=== PATIENT | female | born 1980 | race Native Hawaiian/Other Pacific Islander ===

== ENCOUNTER 2016-11-26 16:45 | Emergency (ER) | payer MEDICAID, OTHER ==
[~2016-11-26] VITALS: Ht 162.6 cm; Wt 61.0 kg
[~2016-11-26 16:45] MED LIST: KETO2%T TOP; METO25 PO; SYNT25TA PO; Z.0.NO CURRENT MEDS
[2016-11-26 16:50] VITALS: BP 110/78; PULSE 93; RESP 16; TEMP 98.3; O2SAT 98
[2016-11-26] MEDS ORDERED: SODIUM CHLORIDE 0.9% FLUSH 10 ML FLUSH IVF PRN (17:00)
[2016-11-26] MEDS ORDERED: SODIUM CHLOR 0.9% 1000 ML INJ 1,000 ML IV ONE (17:00)
[2016-11-26 17:12] LABS: AUTOMATED NEUTROPHIL # 4.1 TH/MM3 (1.8-7.7); BASOPHIL # 0.1 TH/MM3 (0-0.2); BASOPHIL % 0.9 % (0.0-2.0); EOSINOPHIL # 0.1 TH/MM3 (0-0.4); EOSINOPHIL % 1.2 % (0.0-4.0); HEMO FLAGS DIFF FINAL; LYMPH % 29.7 % (9.0-44.0); MEAN CELL VOLUME 91.3 FL (80.0-100.0); MEAN CORPUSCULAR HEMOGLOBIN 31.1 PG (27.0-34.0); MEAN CORPUSCULAR HGB CONC 34.1 % (32.0-36.0); MONO % 7.7 % (0.0-8.0); NEUT % 60.5 % (16.0-70.0); PLATELET COUNT 264 TH/MM3 (150-450); RED BLOOD COUNT 4.27 MIL/MM3 (4.00-5.30); RED CELL DISTRIBUTION WIDTH 12.2 % (11.6-17.2); WHITE BLOOD COUNT 6.8 TH/MM3 (4.0-11.0)
[2016-11-26 17:13] VITALS: BP 113/81; PULSE 85; RESP 20; O2SAT 98
[2016-11-26 17:24] LABS: CHLORIDE 108 MEQ/L (98-107); POTASSIUM 3.7 MEQ/L (3.5-5.1); SODIUM (NA) 140 MEQ/L (136-145)
[2016-11-26 17:28] LABS: ANION GAP 10 MEQ/L (5-15); BICARBONATE 22.4 MEQ/L (21.0-32.0); BLOOD UREA NITROGEN 9 MG/DL (7-18)
[2016-11-26] MEDS ORDERED: MORPHINE SULFATE 8 MG/ML INJ IV PUSH ONE (17:30)
[2016-11-26 17:31] LABS: ALT (GPT) 17 U/L (10-53); AST (GOT) 15 U/L (15-37); GLOMERULAR FILTRATION RATE 95 ML/MIN (>89)
[2016-11-26 17:33] LABS: TOTAL BILIRUBIN ADULT 0.5 MG/DL (0.2-1.0)
[2016-11-26 17:34] LABS: ALKALINE PHOSPHATASE 62 U/L (45-117)
[2016-11-26 17:36] LABS: BETA HCG QUANT LESS THAN 1 MIU/ML (0-5)
--- NOTE | 2016-11-26 17:47 | PD ---
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 Patient reports that 4 days ago, her IUD feel out after being in there for 2 years. Reports that it was placed by Dr. Mcrae and she has not had any issues with it since then. Reports that she just had her period 1 week ago, reports that this afternoon, she began to have severe pain to her lower abdomen. Reports that she has been having vaginal bleeding ever since her IUD was displaced, reports that this afternoon is when she began to have severe lower abdominal cramping. Patient reports that pain is worse to her right lower abdomen. Reports nausea and vomiting with her symptoms. Patient also reports that she is having sore throat. No fever/chills. Denies cough/congestion. Denies vaginal discharge at this time. [facility] Past Medical History Medical History: Denies Significant Hx Diminished Hearing: No ?: Unknown LMP: 1 week ago Past Surgical History Surgical History: No Previous Surgery Social History Alcohol Use: No Tobacco Use: No Substance Use: No Allergies-Medications (Allergen,Severity, Reaction): Coded Allergies: No Known Allergies (Verified , 11/26/16) Reported Meds & Prescriptions Reported Meds & Active Scripts Active No Active Prescriptions or Reported Medications Review of Systems General / Constitutional: No: Fever Eyes: No: Visual changes HENT: Positive: Sore Throat, No: Headaches Cardiovascular: No: Chest Pain or Discomfort Respiratory: No: Shortness of Breath Gastrointestinal: Positive: Nausea, Vomiting, Abdominal Pain Genitourinary: Positive: Pelvic Pain, Vaginal Bleeding, No: Dysuria Musculoskeletal: No: Pain Skin: No Rash Neurologic: No: Weakness Psychiatric: No: Depression Endocrine: No: Polydipsia Hematologic/Lymphatic: No: Easy Bruising Physical Exam Narrative GENERAL: Moderate distress SKIN: Focused skin assessment warm/dry. HEAD: Atraumatic. Normocephalic. EYES: Pupils equal and round. No scleral icterus. No injection or drainage. ENT: No nasal bleeding or discharge. Mucous membranes pink and moist. NECK: Trachea midline. No JVD. CARDIOVASCULAR: Regular rate and rhythm. No murmur appreciated. RESPIRATORY: No accessory muscle use. Clear to auscultation. Breath sounds equal bilaterally. GASTROINTESTINAL: Abdomen soft, nondistended, diffusely tender to lower abdomen. Hepatic and splenic margins not palpable. : pelvic exam performed with RN at bedside, patient with right sided adnexal tenderness, no cmt tenderness, scant brown discharge MUSCULOSKELETAL: No obvious deformities. No clubbing. No cyanosis. No edema. NEUROLOGICAL: Awake and alert. No obvious cranial nerve deficits. Motor grossly within normal limits. Normal speech. PSYCHIATRIC: Appropriate mood and affect; insight and judgment normal. Data Data Last Documented VS Vital Signs Date Time Temp Pulse Resp B/P Pulse Ox O2 Delivery O2 Flow Rate FiO2 11/26/16 17:53 71 20 113/81 93 11/26/16 16:50 98.3 Orders Beta Hcg (Quant/Titer) (11/26/16 16:57) Complete Blood Count With Diff (11/26/16 16:57) Comprehensive Metabolic Panel (11/26/16 16:57) Gc And Chlamydia Pcr (11/26/16 16:57) Wet Prep Profile (11/26/16 16:57) Urinalysis - C+S If Indicated (11/26/16 16:57) Iv Access Insert/Monitor (11/26/16 16:57) Sodium Chloride 0.9% Flush (Ns Flush) (11/26/16 17:00) Ed Urine Pregnancytest Poc (11/26/16 16:57) Sodium Chlor 0.9% 1000 Ml Inj (Ns 1000 M (11/26/16 17:00) Group A Rapid Strep Screen (11/26/16 17:18) Us Pelvis Comp W Doppler (11/26/16 17:18) Morphine Inj (Morphine Inj) (11/26/16 17:30) Strep Culture (Group A) (11/26/16 17:45) Ct Abd/Pel W Iv Contrast(Rout) (11/26/16 18:42) Labs Laboratory Tests Test 11/26/16 11/26/16 17:05 17:45 White Blood Count 6.8 TH/MM3 Red Blood Count 4.27 MIL/MM3 Hemoglobin 13.3 GM/DL Hematocrit 39.0 % Mean Corpuscular Volume 91.3 FL Mean Corpuscular Hemoglobin 31.1 PG Mean Corpuscular Hemoglobin 34.1 % Concent Red Cell Distribution Width 12.2 % Platelet Count 264 TH/MM3 Mean Platelet Volume 8.8 FL Neutrophils (%) (Auto) 60.5 % Lymphocytes (%) (Auto) 29.7 % Monocytes (%) (Auto) 7.7 % Eosinophils (%) (Auto) 1.2 % Basophils (%) (Auto) 0.9 % Neutrophils # (Auto) 4.1 TH/MM3 Lymphocytes # (Auto) 2.0 TH/MM3 Monocytes # (Auto) 0.5 TH/MM3 Eosinophils # (Auto) 0.1 TH/MM3 Basophils # (Auto) 0.1 TH/MM3 CBC Comment DIFF FINAL Differential Comment Sodium Level 140 MEQ/L Potassium Level 3.7 MEQ/L Chloride Level 108 MEQ/L Carbon Dioxide Level 22.4 MEQ/L Anion Gap 10 MEQ/L Blood Urea Nitrogen 9 MG/DL Creatinine 0.70 MG/DL Estimat Glomerular Filtration 95 ML/MIN Rate Random Glucose 108 MG/DL Calcium Level 8.8 MG/DL Total Bilirubin 0.5 MG/DL Aspartate Amino Transf 15 U/L (AST/SGOT) Alanine Aminotransferase 17 U/L (ALT/SGPT) Alkaline Phosphatase 62 U/L Total Protein 8.0 GM/DL Albumin 3.7 GM/DL Human Chorionic Gonadotropin, LESS THAN 1 Quant MIU/ML Clue Cells (Wet Prep) NONE SEEN Vaginal Trichomonas (Wet Prep) NONE SEEN Vaginal Yeast (Wet Prep) NONE SEEN MDM Medical Decision Making Medical Screen Exam Complete: Yes Emergency Medical Condition: Yes Interpretation(s) Vital Signs Date Time Temp Pulse Resp B/P Pulse Ox O2 Delivery O2 Flow Rate FiO2 11/26/16 17:13 85 20 113/81 98 11/26/16 16:50 98.3 93 16 110/78 98 Differential Diagnosis Differential includes appendicitis, ovarian torsion, ovarian cysts, cervicitis, gastroenteritis, strep pharyngitis, cystitis Narrative Course Patient is a 36-year-old female who presents to emergency room with complaints of abdominal pain. Patient reports that she has been having severe abdominal pain for the past 3 hours, reports that 4 days ago, her IUD "fell out." Reports that she has had no pain after IUD fell out. Reports that pain is worse to her right lower abdomen. On pelvic exam, patient does have right-sided adnexal tenderness. Discussed concerns for possible ovarian torsion versus ovarian cyst, pelvic ultrasound was ordered. Lab work including cultures ordered. Will give morphine for pain control. IF us neg for pathology, will order ct of abdomen/pelvis Laboratory Tests Test 11/26/16 11/26/16 17:05 17:45 White Blood Count 6.8 TH/MM3 (4.0-11.0) Red Blood Count 4.27 MIL/MM3 (4.00-5.30) Hemoglobin 13.3 GM/DL (11.6-15.3) Hematocrit 39.0 % (35.0-46.0) Mean Corpuscular Volume 91.3 FL (80.0-100.0) Mean Corpuscular Hemoglobin 31.1 PG (27.0-34.0) Mean Corpuscular Hemoglobin 34.1 % Concent (32.0-36.0) Red Cell Distribution Width 12.2 % (11.6-17.2) Platelet Count 264 TH/MM3 (150-450) Mean Platelet Volume 8.8 FL (7.0-11.0) Neutrophils (%) (Auto) 60.5 % (16.0-70.0) Lymphocytes (%) (Auto) 29.7 % (9.0-44.0) Monocytes (%) (Auto) 7.7 % (0.0-8.0) Eosinophils (%) (Auto) 1.2 % (0.0-4.0) Basophils (%) (Auto) 0.9 % (0.0-2.0) Neutrophils # (Auto) 4.1 TH/MM3 (1.8-7.7) Lymphocytes # (Auto) 2.0 TH/MM3 (1.0-4.8) Monocytes # (Auto) 0.5 TH/MM3 (0-0.9) Eosinophils # (Auto) 0.1 TH/MM3 (0-0.4) Basophils # (Auto) 0.1 TH/MM3 (0-0.2) CBC Comment DIFF FINAL Differential Comment Sodium Level 140 MEQ/L (136-145) Potassium Level 3.7 MEQ/L (3.5-5.1) Chloride Level 108 MEQ/L (98-107) Carbon Dioxide Level 22.4 MEQ/L (21.0-32.0) Anion Gap 10 MEQ/L (5-15) Blood Urea Nitrogen 9 MG/DL (7-18) Creatinine 0.70 MG/DL (0.50-1.00) Estimat Glomerular Filtration 95 ML/MIN (>89) Rate Random Glucose 108 MG/DL (74-106) Calcium Level 8.8 MG/DL (8.5-10.1) Total Bilirubin 0.5 MG/DL (0.2-1.0) Aspartate Amino Transf 15 U/L (15-37) (AST/SGOT) Alanine Aminotransferase 17 U/L (10-53) (ALT/SGPT) Alkaline Phosphatase 62 U/L (45-117) Total Protein 8.0 GM/DL (6.4-8.2) Albumin 3.7 GM/DL (3.4-5.0) Human Chorionic Gonadotropin, LESS THAN 1 Quant MIU/ML (0-5) Clue Cells (Wet Prep) NONE SEEN (NONE) Vaginal Trichomonas (Wet Prep) NONE SEEN (NONE) Vaginal Yeast (Wet Prep) NONE SEEN (NONE) Patient signed out to care of Dr. Shaikh at change of shift Scripts No Active Prescriptions or Reported Meds Rylee Hernandez DO Nov 26, 2016 17:47
[2016-11-26 17:53] VITALS: BP 113/81; PULSE 71; RESP 20; O2SAT 93
[2016-11-26 19:13] VITALS: BP 110/67; PULSE 101; RESP 18; O2SAT 99
[2016-11-26 19:26] LABS: GLUCOSE,URINE NEG (NEG); KETONE, URINE NEG (NEG); NITRITE,URINE NEG (NEG); PH, URINE 5.5 (5.0-8.5)
[2016-11-26 19:28] LABS: BLOOD, URINE MOD (NEG)
--- NOTE | 2016-11-26 19:28 | PD ---
Physical Exam Date Seen by Provider: Nov 26, 2016 Time Seen by Provider: 19:27 Narrative Accepted in transfer of care from Dr. Hernandez Data Data Last Documented VS Vital Signs Date Time Temp Pulse Resp B/P Pulse Ox O2 Delivery O2 Flow Rate FiO2 11/26/16 20:20 91 20 102/71 98 Room Air 11/26/16 16:50 98.3 Orders Beta Hcg (Quant/Titer) (11/26/16 16:57) Complete Blood Count With Diff (11/26/16 16:57) Comprehensive Metabolic Panel (11/26/16 16:57) Gc And Chlamydia Pcr (11/26/16 16:57) Wet Prep Profile (11/26/16 16:57) Urinalysis - C+S If Indicated (11/26/16 16:57) Iv Access Insert/Monitor (11/26/16 16:57) Sodium Chloride 0.9% Flush (Ns Flush) (11/26/16 17:00) Ed Urine Pregnancytest Poc (11/26/16 16:57) Sodium Chlor 0.9% 1000 Ml Inj (Ns 1000 M (11/26/16 17:00) Group A Rapid Strep Screen (11/26/16 17:18) Us Pelvis Comp W Doppler (11/26/16 17:18) Morphine Inj (Morphine Inj) (11/26/16 17:30) Strep Culture (Group A) (11/26/16 17:45) Ct Abd/Pel W Iv Contrast(Rout) (11/26/16 18:42) Iohexol 350 Inj (Omnipaque 350 Inj) (11/26/16 20:21) Ketorolac Inj (Toradol Inj) (11/26/16 21:00) Labs Laboratory Tests Test 11/26/16 11/26/16 11/26/16 17:05 17:45 19:10 White Blood Count 6.8 TH/MM3 Red Blood Count 4.27 MIL/MM3 Hemoglobin 13.3 GM/DL Hematocrit 39.0 % Mean Corpuscular Volume 91.3 FL Mean Corpuscular Hemoglobin 31.1 PG Mean Corpuscular Hemoglobin 34.1 % Concent Red Cell Distribution Width 12.2 % Platelet Count 264 TH/MM3 Mean Platelet Volume 8.8 FL Neutrophils (%) (Auto) 60.5 % Lymphocytes (%) (Auto) 29.7 % Monocytes (%) (Auto) 7.7 % Eosinophils (%) (Auto) 1.2 % Basophils (%) (Auto) 0.9 % Neutrophils # (Auto) 4.1 TH/MM3 Lymphocytes # (Auto) 2.0 TH/MM3 Monocytes # (Auto) 0.5 TH/MM3 Eosinophils # (Auto) 0.1 TH/MM3 Basophils # (Auto) 0.1 TH/MM3 CBC Comment DIFF FINAL Differential Comment Sodium Level 140 MEQ/L Potassium Level 3.7 MEQ/L Chloride Level 108 MEQ/L Carbon Dioxide Level 22.4 MEQ/L Anion Gap 10 MEQ/L Blood Urea Nitrogen 9 MG/DL Creatinine 0.70 MG/DL Estimat Glomerular Filtration 95 ML/MIN Rate Random Glucose 108 MG/DL Calcium Level 8.8 MG/DL Total Bilirubin 0.5 MG/DL Aspartate Amino Transf 15 U/L (AST/SGOT) Alanine Aminotransferase 17 U/L (ALT/SGPT) Alkaline Phosphatase 62 U/L Total Protein 8.0 GM/DL Albumin 3.7 GM/DL Human Chorionic Gonadotropin, LESS THAN 1 Quant MIU/ML Clue Cells (Wet Prep) NONE SEEN Vaginal Trichomonas (Wet Prep) NONE SEEN Vaginal Yeast (Wet Prep) NONE SEEN Urine Color YELLOW Urine Turbidity CLEAR Urine pH 5.5 Urine Specific Sikes 1.012 Urine Protein NEG mg/dL Urine Glucose (UA) NEG mg/dL Urine Ketones NEG mg/dL Urine Occult Blood MOD Urine Nitrite NEG Urine Bilirubin NEG Urine Leukocyte Esterase NEG Urine RBC 4-9 /hpf Urine WBC 0-2 /hpf Urine Squamous Epithelial 0-5 /hpf Cells Urine Bacteria NONE /hpf Microscopic Urinalysis Comment CULT NOT INDICATED [facility] Medical Record Reviewed: Yes Supervised Visit with JOSE ANTONIO: No Interpretation(s) Last Impressions Abdomen/Pelvis CT 11/26/16 1842 Signed Impressions: Service Date/Time: Saturday, November 26, 2016 19:45 - CONCLUSION: Negative CT of the abdomen and pelvis. Landen Nicole MD Pelvis Ultrasound 11/26/16 1718 Signed Impressions: Service Date/Time: Saturday, November 26, 2016 23:31 - CONCLUSION: Normal pelvic ultrasound. Landen Nicole MD CBC & BMP Diagram 11/26/16 17:05 Vital Signs Date Time Temp Pulse Resp B/P Pulse Ox O2 Delivery O2 Flow Rate FiO2 11/26/16 19:13 101 18 110/67 99 Room Air 11/26/16 19:00 18 11/26/16 17:53 71 20 113/81 93 11/26/16 17:13 85 20 113/81 98 11/26/16 16:50 98.3 93 16 110/78 98 CBC with automated differential values are normal range with normal total white cell count hemoglobin hematocrit platelet count and automated differential; complete metabolic panel values are normal limits; quantitative hCG is less than 1 and negative; urinalysis shows blood otherwise negative culture not indicated; CT abdomen and pelvis per reading radiologist normal study no evidence of acute process; ultrasound shows good blood flow to both ovaries and no acute process as read as a normal study; patient's rapid strep antigen is negative Differential Diagnosis Accepted in transfer of care from Dr. Hernandez; please refer to her dictation Narrative Course Accept in transfer of care from Dr. Hernandez for follow-up of pending labs and imaging studies and patient disposition It is 8:45 PM patient is resting comfortably and CBC with automated differential values are normal range with normal total white cell count hemoglobin hematocrit platelet count and automated differential; complete metabolic panel values are normal limits; quantitative hCG is less than 1 and negative; urinalysis shows blood otherwise negative culture not indicated; CT abdomen and pelvis per reading radiologist normal study no evidence of acute process; ultrasound shows good blood flow to both ovaries and no acute process as read as a normal study; patient's rapid strep antigen is negative. Patient with family member at bedside informed of diagnostic results and is stable for outpatient management. 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 Takes Zofran as prescribed as needed for nausea and/or vomiting Take ibuprofen/Motrin as prescribed as needed for pain associated with inflammation Return to the emergency department for any concerns or change in condition Take acetaminophen/Tylenol as needed for fever 100.4F or greater Med/Other Pt SpecificInfo: Prescription(s) given Scripts Ondansetron Odt (Zofran Odt)4 Mg Tab4 Mg SL Q6HR PRN (Nausea/Vomiting) #10 TAB Ref 0 Prov:Fernanda Shaikh MD 11/26/16 Ibuprofen 600 Mg [id number] Mg PO Q6H PRN (PAIN GREATER THAN 5) #12 TAB Ref 0 Prov:Fernanda Shaikh MD 11/26/16 Disposition: 01 DISCHARGE HOME Condition: Stable Fernanda Shaikh MD Nov 26, 2016 19:28
[2016-11-26 19:32] LABS: URINE COLOR YELLOW (YELLW/STRAW)
[2016-11-26 19:33] LABS: COMMENT (UR) CULT NOT INDICATED; CULTURE IF INDICATED CULT NOT INDICATED; SQUAMOUS EPITHELIAL CELL URINE 0-5 /hpf (0-5); WBC, URINE 0-2 /hpf (0-5)
--- NOTE | 2016-11-26 20:07 | RADRPT ---
EXAM DATE/TIME: 11/26/2016 23:31 [facility] COMPARISON: No previous studies available for comparison. INDICATIONS : Pelvic pain. MEDICAL HISTORY : Abdominal pain. Nausea. Vomiting. SURGICAL HISTORY : ENCOUNTER: Initial ACUITY: 1 day PAIN SCORE: 10/10 LOCATION: Bilateral pelvis MEASUREMENTS: UTERUS: 8.1 x 5.1 x 4.2 cm ENDOMETRIAL STRIPE: 8 mm RIGHT OVARY: 3.8 x 2.4 x 2.5 cm LEFT OVARY: 2.5 x 2.7 x 1.1 cm FINDINGS: UTERUS: The myometrium has homogeneous echotexture without mass. RIGHT OVARY: Ovary contains no mass or significant cystic lesion. LEFT OVARY: Ovary contains no mass or significant cystic lesion. MISCELLANEOUS: No free fluid. Doppler interrogation shows normal blood flow to both ovaries. CONCLUSION: Normal pelvic ultrasound. Landen Nicole MD on November 26, 2016 at 20:05 Board Certified Radiologist. This report was verified electronically.
--- NOTE | 2016-11-26 20:17 | RADRPT ---
EXAM DATE/TIME: 11/26/2016 19:45 [facility] COMPARISON: No previous studies available for comparison. INDICATIONS : Right lower quadrant pain for one hour; vaginal bleeding since IUD came out four days ago. IV CONTRAST: 100 cc Omnipaque 350 (iohexol) IV ORAL CONTRAST: No oral contrast ingested. RADIATION DOSE: 6.13 CTDIvol (mGy) MEDICAL HISTORY : None SURGICAL HISTORY : None. ENCOUNTER: Initial ACUITY: 1 day PAIN SCALE: 5/10 LOCATION: Right lower quadrant TECHNIQUE: Volumetric scanning of the abdomen and pelvis was performed. Using automated exposure control and ad justment of the mA and/or kV according to patient size, radiation dose was kept as low as reasonably achievable to obtain optimal diagnostic quality images. DICOM format image data is available electro nically for review and comparison. FINDINGS: LOWER LUNGS: The visualized lower lungs are clear. LIVER: Homogeneous density without lesion. There is no dilation of the biliary tree. No calcified gallston es. SPLEEN: Normal size without lesion. PANCREAS: Within normal limits. KIDNEYS: Normal in size and shape. There is no mass, stone or hydronephrosis. ADRENAL GLANDS: Within normal limits. VASCULAR: There is no aortic aneurysm. BOWEL/MESENTERY: The stomach, small bowel, and colon demonstrate no acute abnormality. There is no free intraperitone al air or fluid. Normal appendix. ABDOMINAL WALL: Within normal limits. RETROPERITONEUM: There is no lymphadenopathy. BLADDER: No wall thickening or mass. REPRODUCTIVE: Within normal limits. INGUINAL: There is no lymphadenopathy or hernia. MUSCULOSKELETAL: Within normal limits for patient age. CONCLUSION: Negative CT of the abdomen and pelvis. Landen Nicole MD on November 26, 2016 at 20:15 Board Certified Radiologist. This report was verified electronically.
[2016-11-26 20:20] VITALS: BP 102/71; PULSE 91; RESP 20; O2SAT 98
[2016-11-26] MEDS ORDERED: IOHEXOL 350 MG/ML 10 ML VIAL (for RAD DIAG) IV ONE (20:21)
[2016-11-26] MEDS ORDERED: ZOFR4TAB3 SL (20:49)
[2016-11-26] MEDS ORDERED: IBUP-232 PO (20:49)
[2016-11-26] MEDS ORDERED: KETOROLAC TROMETHAMINE 30 MG/ML (IVP) VIAL IV PUSH ONE (21:00)
[2016-11-26 21:05] VITALS: BP 110/66
[2016-11-26 21:54] LABS: CHLAMYDIA PCR NOT DETECTED (NOT DETECT); NEISSERIA PCR NOT DETECTED (NOT DETECT)
== END 2016-11-26 21:15 | disposition home or self-care (01) ==
LOC: PHED 16:45
DX: R10.31 Right lower quadrant pain (principal); N93.9 Abnormal uterine and vaginal bleeding, unspecified; J02.9 Acute pharyngitis, unspecified; R10.2 Pelvic and perineal pain
CPT/HCPCS: 74177; 76856; 80053; 81001; 84702; 84703; 85025; 87081; 87210; 87491; 87591; 87880; 93975; 96361; 96374; 96375; 99285; J1885; J2270; J7030; Q9967